=== PATIENT | male | born 2000 | race Two or more races ===

== ENCOUNTER 2023-04-23 12:42 | Emergency (ER) | payer OTHER ==
[~2023-04-23] VITALS: Ht 177.8 cm; Wt 95.5 kg
[2023-04-23] MEDS ORDERED: FLUORESCEIN SODIUM 1 MG STRIP OU ONE (14:30)
[2023-04-23] MEDS ORDERED: PROPARACAINE HCL 0.5% 15 ML OPHTHALMIC SOLUTION OU ONE (14:30)
[2023-04-23] MEDS ORDERED: ERYT3.5O8 OU (14:54)
[2023-04-23 15:04] VITALS: BP 128/76; PULSE 79; RESP 18; TEMP 98.1
== END 2023-04-23 15:18 | disposition home or self-care (01) ==
LOC: EMS 12:56
DX: B30.9 Viral conjunctivitis, unspecified (principal); R05.9 Cough, unspecified
CPT/HCPCS: 99283

== ENCOUNTER 2024-04-08 16:24 | Emergency (ER) | payer OTHER ==
[~2024-04-08] VITALS: Ht 177.8 cm; Wt 113.6 kg
[~2024-04-08 16:24] MED LIST: ERYT3.5O8 OU
[2024-04-08 16:29] VITALS: TEMP 99.6
[2024-04-08 17:04] LABS: BASOPHILS % (AUTO) 0.3 % (0.0-2.0); EOSINOPHILS % (AUTO) 0 % (1.0-6.0); HEMATOCRIT 45.3 % (41-53); HEMOGLOBIN 14.9 g/dL (13.5-17.5); LYMPHOCYTES # (AUTO) 1.2 K/uL (1.0-4.8); MEAN CORPUSCULAR HEMOGLOBIN 28.8 pg (26.0-34.0); MEAN CORPUSCULAR VOLUME 87 fL (80-100); MONOCYTES # (AUTO) 1.5 K/uL (0.1-1.0); MONOCYTES % (AUTO) 9.6 % (2.0-9.0); NEUTROPHILS # (AUTO) 12.8 K/uL (1.8-7.7); NEUTROPHILS % (AUTO) 82.1 % (40.0-70.0); PLATELET COUNT (AUTO) 180 K/uL (150-450); RED BLOOD CELL COUNT(AUTO) 5.19 MIL/uL (4.50-5.90); RED CELL DISTRIBUTION WIDTH 13.5 % (11.5-14.5); WHITE BLOOD COUNT (AUTO) 15.6 K/uL (4.5-11.0)
[2024-04-08 17:05] LABS: ANION GAP 10 mmol/L (8-16); CALCIUM, TOTAL 9.3 mg/dL (8.8-10.5); CARBON DIOXIDE 29 mmol/L (22-29); CHLORIDE 98 mmol/L (98-107); CREATININE 0.65 mg/dL (0.60-1.30); GLOMERULAR FILTR. RATE CALC > 60 mL/min (>60); GLUCOSE,RANDOM 104 mg/dL (70-110); POTASSIUM 3.7 mmol/L (3.5-5.1); SODIUM SERUM 137 mmol/L (136-145); UREA NITROGEN, BLOOD 16 mg/dL (7-18)
[2024-04-08 17:18] LABS: TROPONIN I-HIGH SENSITIVITY Less Than 4 ng/L (<76)
[2024-04-08 18:39] LABS: COVID AG,FIA SOURCE NASAL SWAB
[2024-04-08 18:59] LABS: INFLUENZA TYPE A NEGATIVE FOR TYPE A (NEGATIVE); INFLUENZA TYPE B NEGATIVE FOR TYPE B (NEGATIVE)
[2024-04-08 19:02] LABS: SARS-COV2 (COVID) ANTIGEN,FIA Negative (Negative)
[2024-04-08] MEDS: KETOROLAC TROMETHAMINE 30 MG/ML VIAL IM ONE (19:29)
[2024-04-08] MEDS: SODIUM CHLORIDE 0.9% 1,000 ML IV ONE (20:42)
[2024-04-08 20:56] LABS: APPEARANCE,URINE CLEAR (CLEAR); BILIRUBIN,URINE NEGATIVE (NEGATIVE); COLOR,URINE YELLOW (YELLOW); GLUCOSE, URINE (UA) NEGATIVE (NEGATIVE); KETONES,URINE TRACE mg/dL (NEGATIVE); LEUKOCYTE ESTERASE ,URINE NEGATIVE (NEGATIVE); NITRATE,URINE NEGATIVE (NEGATIVE); OCCULT BLOOD,URINE NEGATIVE (NEGATIVE); PROTEIN,URINE 30-70 mg/dL (NEGATIVE); SPECIFIC GRAVITIY, URINE 1.035 (1.003-1.030)
[2024-04-08 21:03] LABS: ALCOHOL, URINE DRUG SCREEN NEGATIVE (NEGATIVE); AMPHET/METH SCREEN,URINE NEGATIVE (NEGATIVE); BARBITURATE SCREEN, URINE NEGATIVE (NEGATIVE); BENZODIAZEPINES SCREEN,URINE NEGATIVE (NEGATIVE); CANNABINOID SCREEN,URINE NEGATIVE (NEGATIVE); COCAINE SCREEN,URINE NEGATIVE (NEGATIVE); METHADONE SCREEN, URINE NEGATIVE (NEGATIVE); OPIATE SCREEN,URINE NEGATIVE (NEGATIVE); PHENCYCLIDINE SCREEN,URINE NEGATIVE (NEGATIVE)
[2024-04-08 21:53] VITALS: BP 132/79; PULSE 95; RESP 20
== END 2024-04-08 22:40 | disposition home or self-care (01) ==
LOC: EMS 16:25
DX: R00.0 Tachycardia, unspecified (principal); E86.0 Dehydration; D72.829 Elevated white blood cell count, unspecified; Z20.822 Contact with and (suspected) exposure to COVID-19
CPT/HCPCS: 99285; 96360; 71045; 87426; 80048; 84484; 85025; 87804; 36415; 93005; 96372; 80307; 81003; J1885; J7030

== ENCOUNTER 2024-04-16 17:25 | Emergency (ER) | payer OTHER ==
[~2024-04-16] VITALS: Ht 177.8 cm; Wt 98.0 kg
[2024-04-16 17:29] VITALS: BP 121/74; PULSE 90; RESP 16; TEMP 98
[2024-04-16] MEDS ORDERED: PRED-554 PO (18:55)
[2024-04-16] MEDS: PredniSONE 20 MG TABLET PO ONE (19:00)
== END 2024-04-16 19:59 | disposition home or self-care (01) ==
LOC: EMS 17:37
DX: H91.93 Unspecified hearing loss, bilateral (principal); R05.9 Cough, unspecified; J02.9 Acute pharyngitis, unspecified
CPT/HCPCS: 99283; J7512

== ENCOUNTER 2025-03-30 11:20 | Emergency (ER) | payer OTHER ==
[~2025-03-30] VITALS: Ht 180.3 cm; Wt 114.0 kg
[~2025-03-30 11:20] MED LIST changes: -ERYT3.5O8 OU; +PRED-554 PO
[2025-03-30 11:29] VITALS: BP 123/64; PULSE 113; RESP 18; TEMP 100.4; O2SAT 96
[2025-03-30 11:44] LABS: COVID AG,FIA SOURCE NASAL SWAB
[2025-03-30 12:07] LABS: SARS-COV2 (COVID) ANTIGEN,FIA Negative (Negative)
[2025-03-30 12:08] LABS: INFLUENZA TYPE A NEGATIVE FOR TYPE A (NEGATIVE); INFLUENZA TYPE B NEGATIVE FOR TYPE B (NEGATIVE)
[2025-03-30] MEDS: METOCLOPRAMIDE HCL 10 MG TABLET PO ONE (12:16)
[2025-03-30] MEDS: IBUPROFEN 600 MG TABLET PO ONE (12:16)
== END 2025-03-30 12:57 | disposition home or self-care (01) ==
LOC: EMS 11:25
DX: J06.9 Acute upper respiratory infection, unspecified (principal); R05.9 Cough, unspecified; B97.89 Other viral agents as the cause of diseases classified elsewhere; Z20.822 Contact with and (suspected) exposure to COVID-19
CPT/HCPCS: 87804; 99283

== ENCOUNTER 2025-04-03 12:38 | Emergency (ER) | payer OTHER ==
[~2025-04-03] VITALS: Ht 180.3 cm; Wt 102.3 kg
[2025-04-03 12:41] VITALS: BP 128/83; PULSE 78; RESP 18; TEMP 98.3; O2SAT 99
== END 2025-04-03 13:19 | disposition home or self-care (01) ==
LOC: EMS 12:38
DX: J06.9 Acute upper respiratory infection, unspecified (principal); R05.9 Cough, unspecified; B97.89 Other viral agents as the cause of diseases classified elsewhere
CPT/HCPCS: 99282; Z7502

== ENCOUNTER 2025-07-11 08:04 | Emergency (ER) | payer OTHER ==
[~2025-07-11] VITALS: Ht 180.3 cm; Wt 100.0 kg
[2025-07-11 08:10] VITALS: BP 115/74; PULSE 81; RESP 18; TEMP 98.2; O2SAT 99
[2025-07-11 08:26] LABS: PLATELET COUNT (AUTO) 209 K/uL (150-450); RED BLOOD CELL COUNT(AUTO) 5.12 MIL/uL (4.50-5.90); RED CELL DISTRIBUTION WIDTH 13.5 % (11.5-14.5); WHITE BLOOD COUNT (AUTO) 10.3 K/uL (4.5-11.0)
[2025-07-11 08:35] LABS: CALCIUM, TOTAL 8.8 mg/dL (8.8-10.5); CREATININE 0.40 mg/dL (0.60-1.30); GLOMERULAR FILTR. RATE CALC > 60 mL/min (>60); GLUCOSE,RANDOM 95 mg/dL (70-110); SODIUM SERUM 141 mmol/L (136-145); UREA NITROGEN, BLOOD 14 mg/dL (7-18)
[2025-07-11 08:44] LABS: TROPONIN I-HIGH SENSITIVITY Less Than 4 ng/L (<76)
[2025-07-11] MEDS: KETOROLAC TROMETHAMINE 60 MG/2 ML VIAL IM ONE (09:51)
[2025-07-11] MEDS ORDERED: METH-659 PO (10:27)
[2025-07-11] MEDS ORDERED: IBUP-1492 PO (10:27)
== END 2025-07-11 10:45 | disposition admitted as inpatient to this hospital (09) ==
LOC: EMS 08:09
DX: R07.89 Other chest pain (principal)
CPT/HCPCS: 99285; 71045; 80048; 84484; 85025; 36415; 93005; 96372; J1885